=== PATIENT | male | born 1990 | race Caucasian/White ===

== ENCOUNTER 2021-01-25 03:03 | Emergency (ER) | payer OTHER ==
[~2021-01-25] VITALS: Ht 185.4 cm; Wt 86.2 kg
[2021-01-25] MEDS ORDERED: INTESTINEX680 M1 PO (06:11)
[2021-01-25] MEDS ORDERED: NAPROXEN500 MG PO (06:11)
[2021-01-25] MEDS ORDERED: CLINDAMYCIN HC300 MG PO (06:11)
== END 2021-01-25 06:15 | disposition home or self-care (01) ==
LOC: ER 03:03
DX: S01.511A Laceration without foreign body of lip, initial encounter (principal); V00.141A Fall from scooter (nonmotorized), initial encounter; Y92.410 Unspecified street and highway as the place of occurrence of the external cause